=== PATIENT | male | born 1975 | race Two or more races ===

== ENCOUNTER 2021-06-13 17:20 | Emergency (ER) | payer OTHER ==
[2021-06-13 17:46] VITALS: BP 160/107; PULSE 72; TEMP 97.9; BMI 34.8
[2021-06-13] MEDS ORDERED: KETOROLAC TROMETHAMINE 30 MG/1 ML VIAL IM ONE (18:48)
[2021-06-13] MEDS ORDERED: CYCLOBENZAPRINE HCL 10 MG TABLET (FP) PO ONE (18:48)
[2021-06-13] MEDS ORDERED: KETOROLAC TROMETHAMINE 30 MG/1 ML VIAL ONE (18:49)
[2021-06-13] MEDS ORDERED: CYCLOBENZAPRINE HCL 10 MG TABLET (FP) ONE ×2 (18:49→18:52)
[2021-06-13] MEDS ORDERED: LIDOCAINE 5% TOPICAL PATCH TP ONE (19:00)
[2021-06-13] MEDS ORDERED: LIDOCAINE 5% TOPICAL PATCH ONE (19:02)
[2021-06-14] MEDS ORDERED: LIDOCAINE PATCH REMOVAL MC SCH (08:00)
== END 2021-06-13 19:30 | disposition home or self-care (01) ==
LOC: JERFT 17:20
PROC: 3E0233Z Introduction of Anti-inflammatory into Muscle, Percutaneous Approach (ICD-10-PCS; principal; 2021-06-13)
DX: M54.32 Sciatica, left side (principal)
CPT/HCPCS: 99284-25